=== PATIENT | female | born 1995 | race African-American/Black ===

== ENCOUNTER 2019-11-21 08:25 | Emergency (ER) | payer OTHER ==
[~2019-11-21] VITALS: Ht 172.7 cm; Wt 70.0 kg
[2019-11-21] MEDS ORDERED: OLANZAPINE 10 MG/VIAL IM STA (08:41)
[2019-11-21] MEDS ORDERED: LORAZEPAM 2MG/ML CPJ IM STA (08:41)
[2019-11-21 09:38] LABS: BASOPHILS % 0.9 % (0.0-2.0); EOSINOPHILS % 0.2 % (0.0-5.0); HEMOGLOBIN. 13.2 g/dL (12.0-16.0); LYMPHOCYTES % 35.4 % (20.0-50.0); MEAN CORPUSCULAR HEMOGLOBIN 29.4 pg (28.0-32.0); MEAN PLATELET VOLUME 7.9 fl (7.4-10.4); MONOCYTES % 10.4 % (2.0-8.0); NEUTROPHILS % 53.1 % (40.0-76.0); PLATELET 293 x1000/uL (130-400); RED BLOOD CELL COUNT 4.48 mill/uL (4.2-5.4); RED CELL DISTRIBUTION WIDTH 14.4 % (11.6-14.6)
[2019-11-21 09:44] LABS: CHLORIDE 108 mEq/L (98-107)
[2019-11-21 09:48] LABS: ETHANOL BLOOD < 10 mg/dL
[2019-11-21 09:52] LABS: HCG SCREEN NEGATIVE
[2019-11-21 18:09] LABS: CLARITY URINE TURBID (CLEAR); COLOR URINE DK YELLOW (YELLOW); KETONES URINE 1+ (NEGATIVE); LEUKOCYTE ESTERASE URINE NEGATIVE (NEGATIVE); NITRITE URINE NEGATIVE (NEGATIVE); OCCULT BLOOD URINE 1+ (NEGATIVE); PROTEIN URINE 2+ (NEGATIVE); SPECIFIC GRAVITY URINE 1.036 (1.005-1.030); UROBILINOGEN URINE 0.2 E.U./dL (0.2-1.0)
[2019-11-21 18:42] LABS: *AMPHETAMINES SCREEN URINE NEGATIVE (NEGATIVE); *BARBITURATES SCREEN URINE NEGATIVE (NEGATIVE); *COCAINE SCREEN URINE NEGATIVE (NEGATIVE); METHADONE URINE SCREEN NEGATIVE (NEGATIVE)
[2019-11-21 18:43] LABS: OPIATES URINE SCREEN NEGATIVE (NEGATIVE); PHENCYCLIDINE URINE SCREEN NEGATIVE (NEGATIVE)
[2019-11-21 18:45] LABS: *BENZODIAZEPINES SCREEN URINE PRESUMTIVE POSITIVE (NEGATIVE); CANNABINOID URINE SCREEN PRESUMTIVE POSITIVE (NEGATIVE)
[2019-11-23] MEDS ORDERED: OLANZAPINE 5MG TABLET ODT PO ONE (00:30)
[2019-11-23 10:30] VITALS: BP 134/79
== END 2019-11-23 10:30 | disposition home or self-care (01) ==
LOC: ER 08:25
DX: T50.911A Poisoning by multiple unspecified drugs, medicaments and biological substances, accidental (unintentional), initial encounter (principal); Y92.9 Unspecified place or not applicable; R45.851 Suicidal ideations; F31.9 Bipolar disorder, unspecified; F29 Unspecified psychosis not due to a substance or known physiological condition
CPT/HCPCS: 36415; 80053; 80305; 80307; 80320; 80329; 81003; 84703; 85025; 87635; 96372; 99285; C9803; J2060; J3490; G0480